=== PATIENT | female | born 1970 ===

== ENCOUNTER 2024-09-21 18:12 | Outpatient (RCR) | payer OTHER, SELFPAY | END 2024-09-21 23:59 | disposition home or self-care (01) | LOC: RPT 18:12 | PROVIDERS: ATTENDING PHYSICIAN Orthopaedic Surgery Hand Surgery; FAMILY PHYSICIAN Family Medicine | DX: M25.511 Pain in right shoulder (principal); Z73.6 Limitation of activities due to disability | CPT/HCPCS: 97010; 97110; 97162; 97530 ==

== ENCOUNTER 2024-10-05 17:54 | Outpatient (RCR) | payer OTHER, SELFPAY | END 2024-10-05 23:59 | disposition home or self-care (01) | LOC: RPT 17:54 | PROVIDERS: ATTENDING PHYSICIAN Orthopaedic Surgery Hand Surgery; FAMILY PHYSICIAN Family Medicine | DX: M25.511 Pain in right shoulder (principal); Z73.6 Limitation of activities due to disability; M62.81 Muscle weakness (generalized); W19.XXXD Unspecified fall, subsequent encounter | CPT/HCPCS: 97010; 97110; 97140 ==